=== PATIENT | male | born 1995 | race American Indian/Alaskan Native ===

== ENCOUNTER 2021-05-25 23:57 | Emergency (ER) | payer SELFPAY ==
--- NOTE | 2021-05-26 00:55 | Emergency Department Report ---
ED Neck Pain/Injury HPI - General Chief Complaint: Neck Pain/Injury Stated Complaint: NECK PAIN Time Seen by Provider: 05/26/21 00:33 Source: patient Mode of arrival: Ambulatory Limitations: No Limitations - History of Present Illness Complaint: neck pain (Right side radiating towards the right shoulder) -: Sudden, days(s) (2-1/2 weeks) Place: work, other (At work) Radiation: right lateral Severity: moderate Severity scale (0 -10): 6 Quality: sharp Consistency: constant Improves With: remaining still Worsens With: movement of neck, other (Lifting of the right arm) Context: other (The patient states he was pushing a box at work) Associated Symptoms: denies: headache, numbness, tingling, vertigo, swollen glands, difficulty swallowing, nausea, vomiting Treatments Prior to Arrival: none (The patient says that he would prefer to have a prescription medication for his pain I denied trying any [id number] medications since the onset of his injury) - Related Data Previous Rx's Medication Instructions Recorded Last Taken Type Ketorolac [Toradol] 10 mg PO Q6H PRN #14 tab 05/26/21 Unknown Rx Allergies Allergy/AdvReac Type Severity Reaction Status Date / Time No Known Allergies Allergy Unverified 05/26/21 01:08 ED Review of Systems ROS: Stated complaint: NECK PAIN Other details as noted in HPI Comment: All other systems reviewed and negative Musculoskeletal: myalgia. denies: back pain, joint swelling, arthralgia Skin: denies: rash, lesions, change in color Neurological: denies: weakness, numbness, paresthesias, confusion, abnormal gait ED Past Medical Hx - Past Medical History Previous Medical History?: No - Medications Home Medications: Home Medications Medication Instructions Recorded Confirmed Last Taken Type Ketorolac [Toradol] 10 mg PO Q6H PRN #14 tab 05/26/21 Unknown Rx ED Physical Exam - General Limitations: No Limitations General appearance: alert - Head Head exam: Present: atraumatic, normocephalic - ENT ENT exam: Present: normal exam - Neck Neck exam: Present: normal inspection, tenderness (Along the distribution of the trapezius muscle). Absent: meningismus, full ROM, lymphadenopathy - Respiratory Respiratory exam: Present: normal lung sounds bilaterally - Extremities Exam Extremities exam: Present: normal inspection, full ROM, normal capillary refill. Absent: tenderness - Expanded Upper Extremity Exam Right Shoulder Exam: Present: normal inspection, full ROM Upper Arm exam: Present: normal inspection, full ROM Elbow exam: Present: normal inspection, full ROM Forearm Wrist exam: Present: normal inspection - Psychiatric Psychiatric exam: Present: normal affect, normal mood - Skin Skin exam: Present: warm, dry, intact, normal color. Absent: rash ED Course Vital Signs 05/26/21 05/26/21 00:13 01:57 Temperature 98.9 F Pulse Rate 76 68 Respiratory 20 14 Rate Blood Pressure 106/87 Blood Pressure 105/54 [Right] O2 Sat by Pulse 98 100 Oximetry Critical care attestation.: If time is entered above; I have spent that time in minutes in the direct care of this critically ill patient, excluding procedure time. ED Disposition Clinical Impression: Strain of cervical portion of right trapezius muscle Disposition: HOME / SELF CARE / HOMELESS Is pt being admited?: No Does the pt Need Aspirin: No Condition: Stable Instructions: Muscle Strain, [id number] Additional Instructions: You should use warm compress on the area of injury. Take medications as prescribed and follow-up with your primary physician next available appointment. You will be given a work note for 1 day. Prescriptions: Ketorolac [Toradol] 10 mg PO Q6H PRN #14 tab PRN Reason: Pain Referrals: GIORGI ARMIJO MD [Primary Care Provider] - 3-5 Days Forms: Work/School Release Form
[2021-05-26] MEDS ORDERED: IBUPROFEN 600 MG TAB PO ONE (01:27)
[2021-05-26 02:02] VITALS: BP 105/54
== END 2021-05-26 02:02 | disposition home or self-care (01) ==
LOC: ED 23:57
DX: S16.1XXA Strain of muscle, fascia and tendon at neck level, initial encounter (principal); M25.511 Pain in right shoulder; X50.1XXA Overexertion from prolonged static or awkward postures, initial encounter; Y93.89 Activity, other specified; Y92.89 Other specified places as the place of occurrence of the external cause; Y99.8 Other external cause status
CPT/HCPCS: 99282

== ENCOUNTER 2021-08-02 10:43 | Emergency (ER) | payer SELFPAY ==
[2021-08-02] MEDS ORDERED: LIDOCAINE-MPF (1%) 10 MG/1 ML VIAL 5 ML INFILTRATI ONE (12:25)
--- NOTE | 2021-08-02 12:25 | Emergency Department Report ---
ED Dysuria HPI - HPI Chief Complaint: Urogenital-Male Stated Complaint: BLOOD IN URINE Time Seen by Provider: 08/02/21 12:24 Duration: 2 Days Severity: None Symptoms: Dysuria: Yes, Frequency: No, Suprapubic Pain: No, Flank Pain: No, Fever: No, Hematuria: No, Abdominal Pain: No, Previous UTI's: No Other History: Patient is a 26-year-old male that comes to the emergency room with penile discharge. Denies any testicular pain. Denies fever or chills. ED Review of Systems ROS: Stated complaint: BLOOD IN URINE Other details as noted in HPI Comment: All other systems reviewed and negative ED Past Medical Hx - Past Medical History Previous Medical History?: No - Surgical History Past Surgical History?: No - Family History Family history: no significant - Social History Smoking Status: Current Every Day Smoker Substance Use Type: Alcohol - Medications Home Medications: Home Medications Medication Instructions Recorded Confirmed Last Taken Type Azithromycin [Zithromax Z-DONAVON] 1,000 mg PO ONCE #4 08/02/21 Unknown Rx metroNIDAZOLE [Flagyl] 500 mg PO ONCE #4 tab 08/02/21 Unknown Rx Dysuria Exam - Exam General: Vital signs noted. No distress. Alert and acting appropriately. Exam: Yes Moist Mucous Membranes, No CVA Tenderness, No Abdominal Tenderness, No Rigidity or Guarding ED Course Vital Signs 08/02/21 12:12 Temperature 98.3 F Pulse Rate 60 Respiratory 18 Rate Blood Pressure 114/48 O2 Sat by Pulse 100 Oximetry ED Medical Decision Making - Medical Decision Making Vital Signs 08/02/21 12:12 Temperature 98.3 F Pulse Rate 60 Respiratory 18 Rate Blood Pressure 114/48 O2 Sat by Pulse 100 Oximetry Patient is concerned for STD. His partner has similar symptoms. He has sex with 1 female. He denies testicular pain, back pain, fever or chills. He has been empirically treated for STI. He has been educated on safe sex. Have given him a gram of Rocephin. He will discharge home with dose of Flagyl and azithromycin. He has been given PCP follow-up. Patient ambulatory, nontoxic [id number] on arrival and on discharge in [facility]. He verbalizes understanding of discharge plan of care - Differential Diagnosis STD Critical care attestation.: If time is entered above; I have spent that time in minutes in the direct care of this critically ill patient, excluding procedure time. ED Disposition Clinical Impression: Concern about STD in male without diagnosis Disposition: 01 HOME / SELF CARE / HOMELESS Is pt being admited?: No Does the pt Need Aspirin: No Condition: Stable Additional Instructions: safe sex follow up with pcp meds as ordered today Prescriptions: metroNIDAZOLE [Flagyl] 500 mg PO ONCE #4 tab Azithromycin [Zithromax Z-DONAVON] 1,000 mg PO ONCE #4 Referrals: GIORGI ARMIJO MD [Staff Physician] - 3-5 Days Time of Disposition: 12:25
[2021-08-02 12:43] VITALS: BP 119/79
== END 2021-08-02 12:45 | disposition home or self-care (01) ==
LOC: ED 10:43
DX: R31.9 Hematuria, unspecified (principal); Z20.2 Contact with and (suspected) exposure to infections with a predominantly sexual mode of transmission; F17.200 Nicotine dependence, unspecified, uncomplicated; F10.20 Alcohol dependence, uncomplicated
CPT/HCPCS: 96372; 99282; J0696; J3490